=== PATIENT | male | born 1980 | race African-American/Black ===

== ENCOUNTER 2019-08-17 22:05 | Emergency (ER) | payer MEDICAID, SELFPAY ==
[2019-08-17 22:36] LABS: #Basophils 0.1 thou/uL (0.0-0.2); #Lymphocytes 1.4 thou/uL (1.20-3.40); #Monocytes 0.8 thou/uL (0.11-0.59); #Neutrophils 13.5 thou/uL (1.40-6.50); %Basophils 0.3 % (0.0-1.0); %Eosinophils 0.3 % (0.0-10.0); %Lymphocytes 8.6 % (21.0-51.0); %Monocytes 5.2 % (0.0-10.0); %Neutrophils 85.6 % (42.0-75.0); Hemoglobin 16.4 g/dL (14.0-18.0); Mean Corpuscular HGB CONC 32.5 g/dL (32.0-36.0); Mean Corpuscular Hemoglobin 26.4 pg (27.0-31.0); Mean Corpuscular Volume 81.3 fL (78.0-98.0); Mean Platelet Volume 8.8 fL (7.4-10.4); Platelet Count 251 thou/uL (130-400); RBC Distribution Width 12.7 % (11.5-14.5); Red Blood Cell (RBC) Count 6.21 mill/uL (4.70-6.10); White Blood Cell (WBC) Count 15.7 thou/uL (4.8-10.8)
--- NOTE | 2019-08-17 22:45 | RAD ---
Chest AP view INDICATION: Shortness of breath with history of TB COMPARISON: None FINDINGS: Lungs:Low lung volumes. Mild subsegmental volume loss involving both lung base Cardiac silhouette:The cardiomediastinal silhouette appears within normal limits. Pulmonary vasculature:Normal Pleural spaces:No pleural effusion or pneumothorax is demonstrated. Upper abdomen:No abnormality seen. Osseous structures: No acute osseous abnormality. Additional findings:None. IMPRESSION: Low lung volumes. Mild subsegmental volume loss involving both lung bases
[2019-08-17 22:56] LABS: ALT (SGPT) 30 U/L (8-55); AST (SGOT) 56 U/L (5-34); Alkaline Phosphatase 90 U/L (40-110); Anion Gap 22 mmol/L (10-20); BUN (Urea Nitrogen) 22 mg/dL (8.9-20.6); Bilirubin, Total 1.4 mg/dL (0.2-1.2); Calc. Creatinine Clearance 0 mL/min (70-130); Carbon Dioxide 22 mmol/L (22-29); Chloride 99 mmol/L (98-107); Estimated GFR-MDRD 76; Globulin 3.5 g/dL (2.4-3.5); Glucose 86 mg/dL (70-105); Potassium 3.9 mmol/L (3.5-5.1); Protein, Total 8.5 g/dL (6.0-8.3); Sodium 139 mmol/L (136-145)
--- NOTE | 2019-08-17 22:59 | RAD ---
Single lateral projection of the chest INDICATION: History of TB with weakness and shortness of breath COMPARISON: AP view of the chest dated August 17, 2019 FINDINGS: Single lateral projection of the chest demonstrates no airspace disease or pleural effusion. No acute osseous abnormality is evident. IMPRESSION: No definite acute abnormalities seen on a single lateral projection of the chest.
[2019-08-17 23:25] LABS: Troponin I Less than 0.010 ng/mL (< 0.028)
[2019-08-17 23:34] LABS: Acetaminophen Less than 6.0 mcg/mL (10.0-30.0); Alcohol Less than 10 mg/dL (Less than 10); Salicylate Less than 8.0 mg/dL (15.0-30.0)
== END 2019-08-17 23:53 | disposition home or self-care (01) ==
LOC: ERS 22:05
DX: R06.02 Shortness of breath (principal); R03.0 Elevated blood-pressure reading, without diagnosis of hypertension; R53.1 Weakness; J45.909 Unspecified asthma, uncomplicated; Z87.891 Personal history of nicotine dependence
CPT/HCPCS: 36415; 36416; 71045; 80053; 80307; 84484; 85025; 93005; 94760; 96365; J3411